=== PATIENT | male | born 1955 | race American Indian/Alaskan Native ===

== ENCOUNTER 2019-05-23 16:23 | Emergency (ER) | payer SELFPAY ==
--- NOTE | 2019-05-23 17:21 | Emergency Department Report ---
Blank Doc - Documentation Documentation: 64-year-old male that presents with unable to control his urine. HX of prostate cancer. Also c/o of URI symptoms. Tachycardia in triage and febrile. This initial assessment/diagnostic orders/clinical plan/treatment(s) is/are subject to change based on patient's health status, clinical progression and re- assessment by fellow clinical providers in the ED. Further treatment and workup at subsequent clinical providers discretion. Patient/guardians urged not to elope from the ED as their condition may be serious if not clinically assessed and managed. Initial orders include: 1- Patient sent to [facility] for further evaluation and treatment 2- EKG 3- labs 4- CXR
[2019-05-23] MEDS ORDERED: IBUPROFEN 600 MG TAB PO ONE (17:23)
--- NOTE | 2019-05-23 18:48 | XRay Report ---
CHEST 2 VIEWS INDICATION / CLINICAL INFORMATION: cough. COMPARISON: None available. FINDINGS: SUPPORT DEVICES: None. HEART / MEDIASTINUM: The thoracic aorta is tortuous. LUNGS / PLEURA: No significant pulmonary or pleural abnormality. .No pneumothorax. ADDITIONAL FINDINGS: No significant additional findings. IMPRESSION: 1. The thoracic aorta is tortuous. No focal infiltrate is seen. No pneumothorax is seen. Signer Name: Niranjan Marcial MD Signed: 05/23/2019 6:43 PM Workstation Name: [id number]
--- NOTE | 2019-05-23 18:53 | Emergency Department Report ---
ED General Adult HPI - General Chief complaint: Urogenital-Male Stated complaint: UNABLE TO CONTROL URINATION Time Seen by Provider: 05/23/19 17:19 Source: patient, EMS Mode of arrival: Wheelchair Limitations: No Limitations - History of Present Illness Initial comments: 64-year-old male with history of prostate cancer presents to ED with 1 week history of URI symptoms and urinary frequency. Patient reports a dry cough, mild headache. He denies sore throat, body aches, nausea or vomiting. Patient also reported urinary frequency with episodes of incontinence, and also diarrhea. He denies any abdominal pain. Patient denies taking any medication for his URI symptoms. -: week(s) (1) Consistency: constant Improves with: none Worsens with: none Associated Symptoms: cough, headaches, loss of appetite. denies: chest pain, fever/chills, nausea/vomiting, shortness of breath - Related Data Previous Rx's Medication Instructions Recorded Last Taken Type Albuterol Sulfate [Proventil Hfa] 2 puff IH Q4HR PRN #1 hfa.aer.ad 05/23/19 Unknown Rx Benzonatate [Tessalon Perles] 100 mg PO Q8HR PRN #20 capsule 05/23/19 Unknown Rx Allergies Allergy/AdvReac Type Severity Reaction Status Date / Time No Known Allergies Allergy Unverified 05/23/19 16:27 ED Review of Systems ROS: Stated complaint: UNABLE TO CONTROL URINATION Other details as noted in HPI Comment: All other systems reviewed and negative Constitutional: denies: chills, fever ENT: denies: throat pain Respiratory: cough. denies: shortness of breath Cardiovascular: denies: chest pain Gastrointestinal: diarrhea. denies: abdominal pain, nausea, vomiting Genitourinary: frequency, other (reports incontinence) Musculoskeletal: denies: back pain Neurological: denies: weakness, numbness ED Past Medical Hx - Past Medical History Previous Medical History?: Yes Hx Hypertension: Yes Additional medical history: UC. prostate CA - Surgical History Past Surgical History?: Yes Additional Surgical History: Prostate surgery - Social History Smoking Status: Never Smoker Substance Use Type: None - Medications Home Medications: Home Medications Medication Instructions Recorded Confirmed Last Taken Type Albuterol Sulfate [Proventil Hfa] 2 puff IH Q4HR PRN #1 hfa.aer.ad 12/18/19 Unknown Rx Benzonatate [Tessalon Perles] 100 mg PO Q8HR PRN #20 capsule 05/23/19 Unknown Rx ED Physical Exam - General Limitations: No Limitations General appearance: alert, in no apparent distress - Head Head exam: Present: atraumatic, normocephalic - Eye Eye exam: Present: normal appearance, EOMI - ENT ENT exam: Present: mucous membranes moist - Neck Neck exam: Present: normal inspection - Respiratory Respiratory exam: Present: normal lung sounds bilaterally. Absent: respiratory distress - Cardiovascular Cardiovascular Exam: Present: normal rhythm, tachycardia - GI/Abdominal GI/Abdominal exam: Present: soft. Absent: distended, tenderness - Extremities Exam Extremities exam: Present: normal inspection - Neurological Exam Neurological exam: Present: alert, oriented X3 - Psychiatric Psychiatric exam: Present: normal affect, normal mood - Skin Skin exam: Present: warm, dry, intact, normal color ED Course Vital Signs 05/23/19 05/23/19 05/23/19 17:19 19:18 19:53 Temperature 100.4 F H 99.8 F H Pulse Rate 124 H 111 H Respiratory 18 18 Rate Blood Pressure 127/88 Blood Pressure 112/71 [Left] O2 Sat by Pulse 97 92 Oximetry 05/23/19 05/23/19 22:59 23:55 Temperature 99.8 F H 99.8 F H Pulse Rate 103 H 103 H Respiratory 18 18 Rate Blood Pressure Blood Pressure 114/89 114/89 [Left] O2 Sat by Pulse 93 93 Oximetry ED Medical Decision Making - Lab Data Result diagrams: 05/23/19 17:52 05/23/19 17:52 - Radiology Data Radiology results: report reviewed, image reviewed - Medical Decision Making 64 yo M with fever, cough, diarrhea, urinary incontinence. Pt likely has viral illness with fever, cough, diarrhea. CXR normal, no infiltrate. Labs unremarkable. UA shows no evidence of UTI. Pt had no episodes of incontinence here in ED. Pt ambulated back and forth to restroom a couple of times due to his diarrhea. Imodium was given. There are documented O2 sats of 92% RA. However, these were documented while pt was sleeping. Pt seems to have some component of sleep apnea. While asleep, O2 sats 89%, but, when I awakened the patient and he sat up and began talking to me, his O2 sats went up to 95% RA. Patient has no respiratory distress, denies feeling short of breath. WBCs and lactic acid normal. UA unremarkable. Prescriptions given. Pt advised to follow up with his urologist and PCP at [place]. - Differential Diagnosis pneumonia, UTI, viral illness, gastroenteritis Critical care attestation.: If time is entered above; I have spent that time in minutes in the direct care of this critically ill patient, excluding procedure time. ED Disposition Clinical Impression: Viral illness Disposition: TO HOME OR SELFCARE Is pt being admited?: No Condition: Stable Instructions: Upper Respiratory Infection (ED), Viral Syndrome (ED) Prescriptions: Albuterol Sulfate [Proventil Hfa] 2 puff IH Q4HR PRN #1 hfa.aer.ad PRN Reason: Wheezing Benzonatate [Tessalon Perles] 100 mg PO Q8HR PRN #20 capsule PRN Reason: Cough Referrals: PRIMARY MD DARRELL [Primary Care Provider] - 3-5 Days [facility] [Provider Group] - 3-5 Days DORIS LI MD [Staff Physician] - 3-5 Days Time of Disposition: 23:08
[2019-05-23 19:01] LABS: Basophils % (Auto) 0.4 % (0.0-1.8); Hematocrit 37.1 % (35.5-45.6); Hemoglobin 12.6 gm/dl (11.8-15.2); Lymphocytes # (Auto) 1.1 K/mm3 (1.2-5.4); Lymphocytes % (Auto) 15.9 % (13.4-35.0); Mean Corpuscular HGB Conc 34 % (32-34); Mean Corpuscular Volume 87 fl (84-94); Monocytes # (Auto) 0.7 K/mm3 (0.0-0.8); Monocytes % (Auto) 10.9 % (0.0-7.3); Platelet Count 370 K/mm3 (140-440); Red Blood Count 4.27 M/mm3 (3.65-5.03); Red Cell Distribution Width 18.6 % (13.2-15.2)
[2019-05-23] MEDS ORDERED: SODIUM CHLORIDE 0.9% 1000 ML 1,000 ML IV ONE (19:06)
[2019-05-23] MEDS ORDERED: LOPERAMIDE 2 MG CAP PO ONE (22:08)
[2019-05-23 22:46] LABS: Bilirubin,Urine NEG (Negative); Blood,Urine MOD (Negative); Color,Urine Yellow (Yellow); Mucus,Urine 1+ /HPF; Urobilinogen,Urine < 2.0 mg/dL (<2.0)
[2019-05-23 23:03] VITALS: BP 114/89
== END 2019-05-23 23:55 | disposition home or self-care (01) ==
LOC: ED 16:23
DX: B34.9 Viral infection, unspecified (principal); R19.7 Diarrhea, unspecified; I10 Essential (primary) hypertension; Z98.890 Other specified postprocedural states; Z79.899 Other long term (current) drug therapy
CPT/HCPCS: 36415; 71046; 80048; 81001; 82140; 85025; 87086; 96360; 99284; J7030